=== PATIENT | female | born 1950 | race Caucasian/White ===

== ENCOUNTER 2018-03-04 21:39 | Emergency (ER) | payer OTHER, MEDICARE, MEDICAID ==
[~2018-03-04] VITALS: Ht 162.6 cm; Wt 90.7 kg
--- NOTE | 2018-03-04 22:10 | NUR ---
Pt BROUGHT IN FROM HOLDING CELL, ACCOMPANIED BY [employer], UNDER CUSTODY. Pt HAS MULTIPLE COMPLIAINTS. MAIN COMPLAINTS ARE Rt WRIST PAIN, AND SWELLING ON BILATERAL LOWER EXTREMITIES. PER Pt's STATEMENT SAID THAT SHE NEEDS DIALYSIS. Pt IN BED. NO S/S OF DISTRESS OR SOB NOTED. SEEN BY
[2018-03-04 22:39] LABS: BASOPHILS % (AUTO) 0.3 % (0.0-2.0); EOSINOPHILS % (AUTO) 0.3 % (0.0-6.0); HEMATOCRIT 40 % (33-45); HEMOGLOBIN 13.4 g/dL (11.5-14.8); LYMPHOCYTES # (AUTO) 0.8 /CMM (0.8-4.8); LYMPHOCYTES % (AUTO) 10.4 % (20.0-44.0); MEAN CORPUSCULAR HEMOGLOBIN 31 PG (26.0-33.0); MEAN CORPUSCULAR HGB CONC 34 g/dl (31.0-36.0); MEAN CORPUSCULAR VOLUME 92 fL (82-100); MONOCYTES # (AUTO) 0.5 /CMM (0.1-1.30); MONOCYTES % (AUTO) 5.7 % (2.0-12.0); NEUTROPHILS # (AUTO) 6.7 /CMM (1.8-8.9); NEUTROPHILS % (AUTO) 83.4 % (43.0-81.0); PLATELET COUNT (AUTO) 193 /CMM (150-450); RDW COEFFICIENT OF VARIATION 13.7 (11.5-15.0); RED BLOOD CELL COUNT(AUTO) 4.29 MIL/uL (4.0-5.2)
[2018-03-04 22:53] LABS: CALCIUM, SERUM 9.8 mg/dL (8.5-10.1); CARBON DIOXIDE 26 mmol/L (21-32); CHLORIDE 105 mmol/L (98-107); CREATININE 1.1 mg/dL (0.6-1.3); GLUCOSE 122 mg/dL (74-106); POTASSIUM 3.8 mmol/L (3.5-5.1); SODIUM SERUM 139 mmol/L (136-145); UREA NITROGEN, BLOOD 32 mg/dL (7-18)
[2018-03-04 22:58] LABS: INR 0.96 (0.87-1.13); TROPONIN I < 0.017 ng/mL (0.00-0.056)
--- NOTE | 2018-03-04 23:06 | NUR ---
PT REFUSED CXR @ 2244 HRS
[2018-03-05] MEDS ORDERED: NA PHOS,M-B/NA PHOS,DI-BA 1 EA ENEMA RC ONE (01:50)
--- NOTE | 2018-03-05 02:18 | NUR ---
Patient discharged to [facility] in stable condition IN CUSTODY. Written and verbal after care instructions given. Patient verbalizes understanding of instruction. VSS. PT AMBULATED OUT IN HANDCUFFS WITH A STEADY GAIT.
[2018-03-05 02:24] VITALS: BP 147/68
--- NOTE | 2018-03-05 02:25 | NUR ---
IV removed. Catheter intact and site benign. Pressure and 4x4 applied to site. No bleeding noted.
--- NOTE | 2018-03-05 02:33 | NUR ---
Patient discharged under police custody left in stable condition. pt left walking with steady gait. no s/s of acute distress or sob noted. Written and verbal after care instructions given.
== END 2018-03-05 02:18 ==
LOC: ER 21:40
DX: R07.89 Other chest pain (principal); I10 Essential (primary) hypertension; I25.2 Old myocardial infarction; J45.909 Unspecified asthma, uncomplicated; N19 Unspecified kidney failure; F32.9 Major depressive disorder, single episode, unspecified; Z88.0 Allergy status to penicillin; Z88.2 Allergy status to sulfonamides
CPT/HCPCS: 36415; 80048-TC; 84484-TC; 85025-TC; 85730-TC; A4606; Z7610